=== PATIENT | female | born 1950 | race Caucasian/White ===

== ENCOUNTER 2016-08-27 15:05 | Inpatient (IN) | payer BC ==
[~2016-08-27] VITALS: Ht 157.5 cm; Wt 91.5 kg
--- NOTE | ~2016-08-27 | DS ---
[facility] AGE[facility] 66 [facility] [address] ROOM: [address] [place], [place] [address] LOCATION: [facility] ADMIT DATE: 08/25/2016 Discharge Summary DISCHARGE DATE: 08/27/2016 FAMILY PHYSICIAN: Hugh Bonilla MD ATTENDING PHYSICIAN: Rell Reese PRIMARY DIAGNOSIS: Degenerative joint disease of the right knee. SECONDARY DIAGNOSES: Hypertension, hypothyroidism, and GERD. PROCEDURE PERFORMED: Right total knee arthroplasty. HISTORY: The patient is a 66-year-old female, who presents with advanced right knee degenerative joint disease and associated severely compromised activities of daily living. The patient has decided to proceed with total knee arthroplasty after having been thoroughly counseled regarding the risks, benefits, limitations and alternatives. Please refer to the outpatient clinic notes and admission history and physical for this patient. HOSPITAL COURSE: The patient underwent a right total knee arthroplasty on 08/17/2016 without complications. Spinal anesthesia plus adductor canal block plus periarticular local anesthesia were utilized. The patient received 24 hours of perioperative prophylactic antibiotics and remained hemodynamically stable, neurovascularly intact throughout the entire hospital course. The postoperative prophylactic deep venous thrombosis prophylaxis consisted of Xarelto, early mobilization and pneumatic compression devices. Daily physical therapy for gait training, transfer training range of motion and quadriceps isometric exercises were received. The patient progressed well in physical therapy. On the date of discharge, 08/27/2016, the incision at the knee was healing well and showed no signs of infection. DISPOSITION: TCU. DISCHARGE ACTIVITY: The patient is to bear weight as tolerated with range of motion and quadriceps isometric exercises as instructed. The operative extremity is to be elevated at least 90% of the day. There is to be sterile 4x4 gauze dressings to the incision daily. Dr. Reese is to be notified immediately if there is any increased pain, fevers, chills erythema or drainage. The patient is to perform right knee terminal extension exercises every 5 to 10 minutes hourly when awake. DISCHARGE MEDICATIONS: 1. Xarelto 10 mg 1 tablet daily for 12 days for postoperative DVT [facility] AGE: 66 Y [address] ROOM: [address] [place], [place] [address] LOCATION: [facility] ADMIT DATE: 08/25/2016 Discharge Summary DISCHARGE DATE: 08/27/2016 FAMILY PHYSICIAN: Hugh Bonilla MD ATTENDING PHYSICIAN: Rell Reese. 2. Hydromorphone 2 mg 1 to 2 tabs p.o. every 4 hours p.r.n. for pain. 3. Diazepam 5 mg 1-1/2 to 1 tab p.o. every 6 hours p.r.n. for muscle spasms. 4. Gabapentin 300 mg one capsule p.o. every night for 7 days for pain. The patient has then been instructed to continue all her other pre-admission medications as instructed by her internal medicine doctor. FOLLOWUP: Followup appointment is to be September 01 with FABI Red for her initial postoperative evaluation with x-rays, for her right knee, and staple removal. RUDY MATTSON PA-C FOR RELL REESE MD SMW/rosariol /[id number] d: t: 09/07/16 1103, DISCHARGE SUMMARY
--- NOTE | ~2016-08-27 | DS ---
[facility] 66 [facility] [address] ROOM: [address] [place], [place] [address] LOCATION: [facility] ADMIT DATE: 08/25/2016 Discharge Summary DISCHARGE DATE: 08/27/2016 FAMILY PHYSICIAN: Hugh Bonilla MD ATTENDING PHYSICIAN: Rell Reese PRIMARY DIAGNOSIS: Degenerative joint disease of the right knee. SECONDARY DIAGNOSES: Hypertension, hypothyroidism, and GERD. PROCEDURE PERFORMED: Right total knee arthroplasty. HISTORY: The patient is a 66-year-old female, who presents with advanced right knee degenerative joint disease and associated severely compromised activities of daily living. The patient has decided to proceed with total knee arthroplasty after having been thoroughly counseled regarding the risks, benefits, limitations and alternatives. Please refer to the outpatient clinic notes and admission history and physical for this patient. HOSPITAL COURSE: The patient underwent a right total knee arthroplasty on 08/17/2016 without complications. Spinal anesthesia plus adductor canal block plus periarticular local anesthesia were utilized. The patient received 24 hours of perioperative prophylactic antibiotics and remained hemodynamically stable, neurovascularly intact throughout the entire hospital course. The postoperative prophylactic deep venous thrombosis prophylaxis consisted of Xarelto, early mobilization and pneumatic compression devices. Daily physical therapy for gait training, transfer training range of motion and quadriceps isometric exercises were received. The patient progressed well in physical therapy. On the date of discharge, 08/27/2016, the incision at the knee was healing well and showed no signs of infection. DISPOSITION: TCU. DISCHARGE ACTIVITY: The patient is to bear weight as tolerated with range of motion and quadriceps isometric exercises as instructed. The operative extremity is to be elevated at least 90% of the day. There is to be sterile 4x4 gauze dressings to the incision daily. Dr. Reese is to be notified immediately if there is any increased pain, fevers, chills erythema or drainage. The patient is to perform right knee terminal extension exercises every 5 to 10 minutes hourly when awake. DISCHARGE MEDICATIONS: 1. Xarelto 10 mg 1 tablet daily for 12 days for postoperative DVT [facility] 66 Y [address] ROOM: [id number] [place], [place] [address] LOCATION: [facility] ADMIT DATE: 08/25/2016 Discharge Summary DISCHARGE DATE: 08/27/2016 FAMILY PHYSICIAN: Hugh Bonilla MD ATTENDING PHYSICIAN: Rell Reese. 2. Hydromorphone 2 mg 1 to 2 tabs p.o. every 4 hours p.r.n. for pain. 3. Diazepam 5 mg 1-1/2 to 1 tab p.o. every 6 hours p.r.n. for muscle spasms. 4. Gabapentin 300 mg one capsule p.o. every night for 7 days for pain. The patient has then been instructed to continue all her other pre-admission medications as instructed by her internal medicine doctor. FOLLOWUP: Followup appointment is to be September 01 with FABI Red for her initial postoperative evaluation with x-rays, for her right knee, and staple removal. RUDY MATTSON PA-C FOR RELL REESE MD SMW/rosariol /[id number] d: 09/01/16 1230 t: 09/08/16 0814, DISCHARGE SUMMARY
--- NOTE | ~2016-08-27 | DS ---
[facility] 66 [facility] [address] ROOM: [address] [place], [place] [address] LOCATION: [facility] ADMIT DATE: 08/25/2016 Discharge Summary DISCHARGE DATE: 08/27/2016 FAMILY PHYSICIAN: Hugh Bonilla MD ATTENDING PHYSICIAN: Rell Reese PRIMARY DIAGNOSIS: Degenerative joint disease of the right knee. SECONDARY DIAGNOSES: Hypertension, hypothyroidism, and GERD. PROCEDURE PERFORMED: Right total knee arthroplasty. HISTORY: The patient is a 66-year-old female, who presents with advanced right knee degenerative joint disease and associated severely compromised activities of daily living. The patient has decided to proceed with total knee arthroplasty after having been thoroughly counseled regarding the risks, benefits, limitations and alternatives. Please refer to the outpatient clinic notes and admission history and physical for this patient. HOSPITAL COURSE: The patient underwent a right total knee arthroplasty on 08/17/2016 without complications. Spinal anesthesia plus adductor canal block plus periarticular local anesthesia were utilized. The patient received 24 hours of perioperative prophylactic antibiotics and remained hemodynamically stable, neurovascularly intact throughout the entire hospital course. The postoperative prophylactic deep venous thrombosis prophylaxis consisted of Xarelto, early mobilization and pneumatic compression devices. Daily physical therapy for gait training, transfer training range of motion and quadriceps isometric exercises were received. The patient progressed well in physical therapy. On the date of discharge, 08/27/2016, the incision at the knee was healing well and showed no signs of infection. DISPOSITION: TCU. DISCHARGE ACTIVITY: The patient is to bear weight as tolerated with range of motion and quadriceps isometric exercises as instructed. The operative extremity is to be elevated at least 90% of the day. There is to be sterile 4x4 gauze dressings to the incision daily. Dr. Reese is to be notified immediately if there is any increased pain, fevers, chills erythema or drainage. The patient is to perform right knee terminal extension exercises every 5 to 10 minutes hourly when awake. DISCHARGE MEDICATIONS: 1. Xarelto 10 mg 1 tablet daily for 12 days for postoperative DVT [facility] 66 Y [address] ROOM: [id number] [place], [place] [address] LOCATION: [facility] ADMIT DATE: 08/25/2016 Discharge Summary DISCHARGE DATE: 08/27/2016 FAMILY PHYSICIAN: Hugh Bonilla MD ATTENDING PHYSICIAN: Rell Reese. 2. Hydromorphone 2 mg 1 to 2 tabs p.o. every 4 hours p.r.n. for pain. 3. Diazepam 5 mg 1-1/2 to 1 tab p.o. every 6 hours p.r.n. for muscle spasms. 4. Gabapentin 300 mg one capsule p.o. every night for 7 days for pain. The patient has then been instructed to continue all her other pre-admission medications as instructed by her internal medicine doctor. FOLLOWUP: Followup appointment is to be September 01 with FABI Red for her initial postoperative evaluation with x-rays, for her right knee, and staple removal. RUDY MATTSON PA-C FOR RELL REESE MD SMW/rosariol /[id number] d: 09/01/16 1230 t: 09/08/16 2114, DISCHARGE SUMMARY
--- NOTE | ~2016-08-27 | DS ---
PATIENT'S NAME: [facility] AGE: 66 Y [address] ROOM: [place] [address] LOCATION: [facility] ADMIT DATE: 08/27/2016 Discharge Summary DISCHARGE DATE: 09/03/2016 FAMILY PHYSICIAN: Hugh Bonilla MD ATTENDING PHYSICIAN: Rell Reese PRIMARY DIAGNOSIS: Degenerative joint disease of the right knee. SECONDARY DIAGNOSES: 1. Hypertension. 2. Hypothyroidism. 3. Gastroesophageal reflux disease. PROCEDURE PERFORMED: Right total knee arthroplasty with computer navigation. HISTORY: The patient is a 66-year-old female, who presents with advanced right knee degenerative joint disease and associated severely compromised activities of daily living. The patient has decided to proceed with total knee arthroplasty after having been thoroughly counseled regarding the risks, benefits, limitations and alternatives. Please refer to the outpatient clinic notes and admission history and physical for this patient. HOSPITAL COURSE: The patient underwent a right total knee arthroplasty on 08/25/2016 without complications. Spinal plus adductor canal block plus periarticular local anesthesia was utilized. The patient received 24 hours of perioperative prophylactic antibiotics and remained hemodynamically stable, neurovascularly intact throughout the entire hospital course. The postoperative prophylactic deep venous thrombosis prophylaxis consisted of - , early mobilization and pneumatic compression devices. Daily physical therapy for gait training, transfer training range of motion and quadriceps isometric exercises were received. The patient progressed well in physical therapy. On the date of discharge, 09/03/2016, the incision at the knee was healing well and showed no signs of infection. DISPOSITION: Home following short stay in the transitional care unit, for which she received further physical therapy and occupational therapy as well as additional wound monitoring. DISCHARGE ACTIVITY: The patient is to bear weight as tolerated with range of motion and quadriceps isometric exercises as instructed. The operative extremity is to be elevated at least 90% of the day. There is to be sterile 4x4 gauze dressings to the incision daily. Dr. Reese is to be notified immediately if there is any increased pain, fevers, chills erythema or drainage. PATIENT'S NAME: [facility] AGE: 66 Y [address] ROOM: [place] [address] LOCATION: [facility] ADMIT DATE: 08/27/2016 Discharge Summary DISCHARGE DATE: 09/03/2016 FAMILY PHYSICIAN: Hugh Bonilla MD ATTENDING PHYSICIAN: Rell Reese DISCHARGE MEDICATIONS: 1. Valium 5 mg, take 1/2 tablet to 1 tablet every 6 hours as needed for muscle spasms. 2. Dilaudid 2 mg, take 1 to 2 tablets p.o. every 4 hours as needed for pain. 3. Xarelto 10 mg, take 1 tablet p.o. daily for DVT prevention. Last dose is scheduled for 09/06/2016. FOLLOWUP: Followup appointment is to be with Dr. Reese for 1 week subsequent dismissal from the transitional care unit for initial postoperative evaluation and x-rays at that time. FABI SHIRLEY FOR RELL REESE MD TLB/modl /[id number] d: 09/15/16 0341 t: 09/22/16 1032, DISCHARGE SUMMARY
[~2016-08-27 15:05] MED LIST: AMLODIPINE-BEN1 EAC5 PO; ASCORBIC ACID500 MG PO; ASPIRIN LO-DOSE81 MG PO; LEVOTHROID (S100 MCG PO; LIPITOR10 MG PO; MOBIC7.5 MG PO; MULTI VITAMIN1 EACH PO; PRILOSEC20 MG PO; VITAMIN D-32000 UNI1 PO
[2016-09-03] MEDS ORDERED: COLACE100 MG PO (09:25)
[2016-09-03] MEDS ORDERED: MIRALAX17 GM PO (09:27)
[2016-09-03] MEDS ORDERED: XARELTO10 MG PO (09:29)
[2016-09-03] MEDS ORDERED: DILAUDID 2MG(HYD2 MG PO (09:30)
[2016-09-03] MEDS ORDERED: VALIUM5 MG PO (09:33)
== END 2016-09-03 09:55 | disposition disaster alternative care site (69) | DRG 561 ==
LOC: GSNF 15:05
PROVIDERS: ADMIT Orthopaedic Surgery
PROC: F08Z4ZZ Home Management Treatment (ICD-10-PCS; principal; 2016-08-27)
PROC: F07Z9ZZ Gait Training/Functional Ambulation Treatment (ICD-10-PCS; principal; 2016-08-27)
DX: Z47.1 Aftercare following joint replacement surgery (principal); I10 Essential (primary) hypertension; Z96.651 Presence of right artificial knee joint; E78.5 Hyperlipidemia, unspecified; K21.9 Gastro-esophageal reflux disease without esophagitis; E66.9 Obesity, unspecified; E03.9 Hypothyroidism, unspecified; Z68.36 Body mass index [BMI] 36.0-36.9, adult